=== PATIENT | female | born 1975 | race African-American/Black ===

== ENCOUNTER 2023-04-22 10:02 | Emergency (ER) | payer OTHER, BC ==
[2023-04-22 10:18] VITALS: BP 132/71; PULSE 71; RESP 16; TEMP 98.6; BMI 27.4
[2023-04-22] MEDS ORDERED: KETOROLAC TROMETHAMINE 30 MG/1 ML VIAL IM ONE (10:27)
[2023-04-22] MEDS ORDERED: KETOROLAC TROMETHAMINE 30 MG/1 ML VIAL ONE (10:29)
== END 2023-04-22 11:25 | disposition home or self-care (01) ==
LOC: JERFT 10:02
PROC: 3E0233Z Introduction of Anti-inflammatory into Muscle, Percutaneous Approach (ICD-10-PCS; principal; 2023-04-22)
DX: M54.2 Cervicalgia (principal); M25.511 Pain in right shoulder; M25.512 Pain in left shoulder; M54.6 Pain in thoracic spine; V49.40XA Driver injured in collision with unspecified motor vehicles in traffic accident, initial encounter
CPT/HCPCS: 72040-TC; 72070-TC-FY; 73562-TC-LT-FY; 99284-25